=== PATIENT | male | born 1965 | race Caucasian/White ===

== ENCOUNTER 2023-07-07 15:23 | Emergency (ER) | payer OTHER, SELFPAY ==
[2023-07-07 15:30] VITALS: BP 154/79; PULSE 98; RESP 16; TEMP 36.6; O2SAT 99
--- NOTE | 2023-07-07 18:03 | ED.EPISTAXIS ---
HPI - Epistaxis General Chief complaint: Epistaxis Stated complaint: nose bleed, takes blood thinners Time Seen by Provider: 07/07/23 17:02 Source: patient Mode of arrival: ambulatory Limitations: no limitations History of Present Illness HPI Narrative: Patient is a 57-year-old male who presents ED with report of left-sided epistaxis. Patient reports he has been congested over the last couple of days. He developed a mild left-sided epistaxis yesterday, which resolved with holding pressure. He did go to [facility] ER yesterday, but states it resolved prior to him being seen. He developed a recurrent nosebleed today around lunchtime after blowing his nose, which has been persistent since then. Unable to control bleeding. Patient takes ASA 81mg daily. No other blood thinners. Patient reports hx of similar epistaxis 1 year ago which required rhino rocket and cautery. Denies severe dizziness/LH, syncope, DENT. Related Data Allergies Allergy/AdvReac Type Severity Reaction Status Date / Time Penicillins Allergy Unknown Verified 07/07/23 18:10 Review of Systems Review of Systems: All systems reviewed & are unremarkable except as noted in HPI and below ENT: Reports system reviewed and no additional complaints, except as documented, Reports as per HPI, Reports epistaxis and Reports nasal congestion Cardiovascular: Cardiovascular: Denies no additional cardiovascular complaints and Denies chest pain Respiratory: Respiratory: Denies no additional respiratory complaints Neurologic: Denies dizziness, Denies headache(s) and Denies weakness Exam Narrative: ENT: L nare with dried blood, clot present posteriorly in vestible with some active bleeding. No distinct areas of bleeding on kesselbech plexus. Minor traces of blood draining down posterior pharynx. MMs moist. No tonsillar hypertrophy or exudate. Uvula midline and nonedematous. Const: General: healthy appearing and no acute distress Nutritional Appearance: well nourished Orientation/consciousness: patient oriented x3 Limitations: no limitations HENMT: Face/Nose/Sinus: Epistaxis present Chest: Chest palpation & inspection: normal inspection of the chest Resp: Effort & Inspection: normal respiratory effort Auscultation: clear to auscultation bilaterally Cardio: Rate: regular rate Rhythm: regular rhythm Neuro: General: patient oriented x3 and moves all extremities Course Vital Signs Vital signs: Vital Signs Temperature 97.9 F 07/07/23 15:30 Pulse Rate 98 07/07/23 15:30 Respiratory Rate 16 07/07/23 15:30 Blood Pressure 154/79 H 07/07/23 15:30 Pulse Oximetry 99 07/07/23 15:30 Oxygen Delivery Room Air 07/07/23 15:30 Temperature 97.9 F 07/07/23 15:30 Pulse Rate 98 07/07/23 15:30 Respiratory Rate 16 07/07/23 15:30 Blood Pressure 154/79 H 07/07/23 15:30 Pulse Oximetry 99 07/07/23 15:30 Oxygen Delivery Room Air 07/07/23 15:30 MDM - Epistaxis MDM Narrative Medical decision making narrative: Presented to ED with several hour onset of L sided epistaxis. Patient stable on arrival. Dr. Jefferson in the ED to see the patient. Lidocaine/afrin utilized. Cautery performed on small size vessel visualized with nasal scope by Dr. Jefferson. See procedure notes. Patient was monitored in the ED for approximately 1 additional hour without recurrence of bleeding. Patient will be discharged with strict return precautions. Advised if bleeding recurs, patient will need to return to the ED for nasal packing. Patient to f/u with Dr. Jefferson in office. Patient and agree with plan. Feels comfortable w/ discharge home. CBC was obtained and showing stable H&H. Medical Records Attestation: I reviewed the patient's medical records. Lab Data 07/07/23 18:59 Labs: Lab Results 07/07/23 Range/Units 18:59 WBC 10.4 H (4.5-10.0) K/mm3 RBC 4.92 (4.6-6.20) M/mm3 Hgb 14.3 (14.0-18.0) g/dL Hct 42.9 (42.0-52.0) % MCV 87.2 (
--- NOTE | 2023-07-07 18:59 | P.CONS_ITS ---
Assessment and Plan Assessment and plan (1) Left-sided epistaxis: Code(s): R04.0 - Epistaxis Status: Acute Assessment and Plan: Afrin [place] b[place] left side until Tuesday then stop saline spray frequently throughout the day for the next 2 weeks. Call me with any bleeding. HPI Data of Consult Date/Time: 07/07/23 18:59 Primary Care Provider: Trev Solorzano, Consult Narrative Narrative: Carlos Agustin is a 57 year old male With left-sided epistaxis currently not bleeding. Consult emergency room. Review of Systems Review of Systems: All systems reviewed & are unremarkable except as noted in HPI and below Meds Home Medications and Allergies Home Medications Medication Instructions Recorded Confirmed Type mupirocin 2 % topical ointment 1 applic topical QHS #15 grams 07/07/23 Rx Allergies Allergy/AdvReac Type Severity Reaction Status Date / Time Penicillins Allergy Unknown Verified 07/07/23 18:10 Vital Signs Vital Signs - 24 hr 07/07/23 15:30 Temperature 36.6 C Pulse Rate 98 Respiratory Rate 16 Blood Pressure 154/79 H Pulse Oximetry 99 Oxygen Delivery Room Air Exam Narrative: Clot suctioned out everything looks good see procedure for in-depth exam left- sided sidewall mid septal vessel was cauterized. Unsure if this is the source of bleeding but was the only suspicious the naked see endoscopy. Results Labs 07/07/23 18:59
--- NOTE | 2023-07-07 18:59 | WPDPROCEDUR ---
Procedures Other Procedures Procedure 1: Other Procedure: This would be left-sided endoscopic complex cautery mid septal vessel. All the consents obtained. Nasal passages nested tied with multiple rounds of Afrin lidocaine both via spray as well as cotton ball. Mid septal sidewall vessel located cauterized with 4 rounds of silver nitrate. In a complex fashion. Patient is somewhat tolerated the procedure reported significant pain each time. No bleeding throughout.
[2023-07-07 19:08] LABS: Basophils Absolute Auto 0.1 K/mm3 (0.0-0.1); Eosinophils Absolute Auto 0.3 K/mm3 (0-0.3); Eosinophils Percent Auto 2.4 % (0-4.4); Hematocrit 42.9 % (42.0-52.0); Hemoglobin 14.3 g/dL (14.0-18.0); Immature Granulocyte Absolute 0.05 K/mm3 (0.00-0.031); Immature Granulocyte Percent A 0.5 % (0-0.5); Lymphocytes Absolute Auto 1.43 K/mm3 (0.9-3.2); Lymphocytes Percent Auto 13.8 % (18.3-44.2); Mean Corpuscular HGB Conc 33.3 g/dl (32-36); Mean Corpuscular Hemoglobin 29.1 pg (26-34); Mean Corpuscular Volume 87.2 fl (80-100); Mean Platelet Volume 9.9 fl (7.4-10.4); Monocytes Absolute Auto 0.7 K/mm3 (0.1-0.6); Monocytes Percent Auto 6.5 % (2.6-8.5); Neutrophils Absolute Auto 7.9 K/mm3 (1.3-6.7); Neutrophils Percent Auto 75.8 % (45.5-73.1); Platelet Count Result 220 k/mm3 (150-375); Red Blood Count 4.92 M/mm3 (4.6-6.20); Red Cell Distribution Width 12.4 % (11.5-14.5); White Blood Count 10.4 K/mm3 (4.5-10.0)
--- NOTE | 2023-07-07 19:12 | PC.NURSE ---
This RN assumed care of patient. This RN took patient report from JAYDA Velasquez.
== END 2023-07-07 19:30 | disposition home or self-care (01) ==
PROVIDERS: Emergency Provider Physician Assistant; PCP Internal Medicine
DX: R04.0 Epistaxis (principal)
CPT/HCPCS: 30901; 36415; 85025; 99283